=== PATIENT | female | born 1955 | race Hispanic/Latino ===

== ENCOUNTER 2018-01-13 16:52 | Day surgery (SDC) | payer OTHER ==
[~2018-01-13 16:52] MED LIST: Dexamethasone 20 MG/5 ML VIAL ONE; Lidocaine 1% PF 5 ML VIAL ONE; Ondansetron HCl/PF 4 MG/2 ML Vial ONE; PROPOFOL 200 MG/20 ML VIAL ONE; Succinylcholine Chloride 20 MG/ML 10 ml SYRINGE FS ONE
[2018-01-13 17:39] LABS: Hemoglobin 13.5 g/dL (12.0-16.0)
[2018-01-13 17:59] LABS: Anion Gap 16 mmol/L (10-20); BUN (Urea Nitrogen) 15 mg/dL (9.8-20.1); Calc. Creatinine Clearance 0 mL/min (70-130); Calcium 9.6 mg/dL (7.8-10.44); Carbon Dioxide 23 mmol/L (23-31); Chloride 106 mmol/L (98-107); Estimated GFR-MDRD 72; Glucose 89 mg/dL (80-115); Potassium 3.9 mmol/L (3.5-5.1); Sodium 141 mmol/L (136-145)
[2018-01-13] MEDS ORDERED: Lidocaine 1% w/Epinephrine 1:100K 30 ML VIAL ONE (19:47)
[2018-01-13] MEDS ORDERED: Fentanyl 100 MCG/2 ML VIAL ONE ×2 (19:53→22:06)
[2018-01-13] MEDS ORDERED: SUGAMMADEX SODIUM 200 MG/2 ML VIAL ONE (19:53)
[2018-01-13] MEDS ORDERED: Midazolam HCl 2 mg/2 ml Vial ONE (19:53)
[2018-01-13] MEDS ORDERED: Hydrocodone-Acetamin 15 ML UDCUP ONE (22:33)
--- NOTE | 2018-01-14 12:49 | EKG ---
Test Reason : PREOP Blood Pressure : / mmHG Vent. Rate : 061 BPM Atrial Rate : 061 BPM P-R Int : 156 ms QRS Dur : 080 ms QT Int : 384 ms P-R-T Axes : 059 025 030 degrees QTc Int : 386 ms Sinus rhythm with occasional Premature ventricular complexes Otherwise normal ECG Confirmed by ZINA AARON ([id number]) on 01/14/2018 12:48:47 PM Referred By: [email or web address] Confirmed By:ZINA AARON
--- NOTE | 2018-01-14 13:18 | OP ---
DATE OF PROCEDURE: 01/13/2018 PREOPERATIVE DIAGNOSIS: Large right obstructive goiter. POSTOPERATIVE DIAGNOSIS: Large right obstructive goiter. SURGEON: Dr. Musa Wright PROCEDURE PERFORMED: Right thyroid lobectomy with laryngeal nerve monitoring. FINDINGS: The patient had a very large goiter that extended between into the tracheoesophageal groov e and compressed the esophagus and extended below the clavicle in a substernal fashion. PROCEDURE IN DETAIL: After consent was obtained, the patient was identified, brought to the operatin g room and placed on the table in supine position. General endotracheal anesthesia was obtained. Th e patient was positioned for surgery. Laryngeal nerve monitor was placed and documented to be in yosef ce using the glide video scope. We then secured the endotracheal tube. We positioned the patient an d prepped and draped in a sterile fashion. The line of intended incision was infiltrated with 1% lid ocaine with 1:100,000 epinephrine and the incision was made and carried down through the skin and sub cutaneous tissues and platysma. Subplatysmal flaps were elevated inferiorly and superiorly and a elma f-retaining retractor was placed. We then divided the strap muscles in midline down to the capsule o f thyroid and dissected the strap muscles from the thyroid capsule while retracting the strap muscles laterally and mobilized the thyroid medially. Once the plane was established the thyroid was delive red from the wound and dissection occurred of the inferior, middle, and superior vessels which were a ll isolated, divided and suture ligated. This then allowed for easy identification of the parathyroi d glands and the recurrent laryngeal nerve which was dissected to its insertion in the cricothyroid m uscle. We were then able to continue to dissect the thyroid. In the pretracheal plane after transec ting the thyroid ligament we then divided the gland in the midline, inspected, sent this specimen for analysis. We then turned our attention to closing the wound. Hemostasis was obtained and fibular S urgiSeal was placed in the deep aspect of the wound. No significant bleeding was encountered and Ane stkatelinia performed a Valsalva maneuver. The strap muscles were reapproximated as was the platysma and subcutaneous tissues. We then used a permanent suture for the skin followed by Steri-Strips and a s terile dressing. The patient was awakened, extubated, and taken to recovery room where she remained in stable condition prior to discharge home.
== END 2018-01-13 23:00 | disposition home or self-care (01) ==
LOC: SDC 16:52
PROVIDERS: ATTEND Specialist
PROC: 0GBH0ZZ Excision of Right Thyroid Gland Lobe, Open Approach (ICD-10-PCS; principal; 2018-01-13)
DX: E04.2 Nontoxic multinodular goiter (principal); I10 Essential (primary) hypertension; M19.90 Unspecified osteoarthritis, unspecified site; Z79.1 Long term (current) use of non-steroidal anti-inflammatories (NSAID); Z79.83 Long term (current) use of bisphosphonates; Z79.899 Other long term (current) drug therapy
CPT/HCPCS: 36415; 80048; 85014; 85018; 88307; 93005; 93010; 96374; J1100; J2001; J2250; J2405; J2704; J3010